=== PATIENT | female | born 1970 | race Caucasian/White ===

== ENCOUNTER 2020-10-08 17:07 | Day surgery (SDCO) | payer OTHER ==
[2020-10-08 17:32] LABS: BASOPHIL 0.5 % (0-2); EOSINOPHIL 2.7 % (0-5); HCT 42.9 % (37.0-47.0); HGB 14.3 g/dl (12.5-16.0); LYMPHOCYTE 10.5 % (15-48); MCH 31.7 pg (25.0-31.0); MCHC 33.3 g/dL (32.0-36.0); MCV 95.1 fL (78.0-100.0); MPV 10.6 fL (6.0-9.5); NEUTROPHIL 80.2 % (41-80); NRBC 0; PLT 316 K/uL (150-400); RBC 4.51 M/uL (4.20-5.40); RDW 12.2 % (11.5-14.0); WBC 15.1 K/uL (4.0-10.5)
[2020-10-08 17:37] LABS: INR 0.96 (0.9-1.2); PROTHROMBIN TIME 12.1 SECONDS (11.4-13.6); PTT 25.3 SECONDS (22.2-34.7)
[2020-10-08 17:39] LABS: D-DIMER 0.52 ug/mLFEU (0.00-0.41)
[2020-10-08 17:45] LABS: ALBUMIN 3.7 g/dL (3.4-5.0); BILIRUBIN - TOTAL 0.5 mg/dL (0.2-1.0); BUN/CREAT RATIO (CALC) 22.4 RATIO; CREATININE 0.76 mg/dL (0.51-0.95); GLOBULIN (CALCULATION) 4.2 g/dL; MAGNESIUM 1.9 mg/dL (1.8-2.4); POTASSIUM 3.8 mmol/L (3.5-5.1); TOTAL PROTEIN 7.9 g/dL (6.4-8.2)
[2020-10-08 17:51] LABS: PRO-BNP 42 pg/mL (<125)
[2020-10-08] MEDS ORDERED: REMERON15 MG PO (23:17)
[2020-10-08] MEDS ORDERED: HYDROCODON-ACE1 EAC6 PO (23:18)
[2020-10-08] MEDS ORDERED: ATARAX25 MG PO (23:19)
[2020-10-09 00:43] LABS: BILIRUBIN NEGATIVE (NEGATIVE); BLOOD 2+ Ery/uL (NEGATIVE); CLARITY CLEAR (CLEAR); COLOR YELLOW (YELLOW); GLUCOSE (U) NORMAL (NORMAL); LEUKOCYTES NEGATIVE Leu/uL (NEGATIVE); NITRITE NEGATIVE (NEGATIVE); PROTEIN NEGATIVE (NEGATIVE); SPECIFIC GRAVITY 1.015 (1.001-1.030); UROBILINOGEN 0.2 mg/dL (0.2-1.0); pH 6.5 (5.0-9.0)
[2020-10-09 00:44] LABS: HCG (URINE) SCREEN NEGATIVE (NEGATIVE)
[2020-10-09 00:46] LABS: BACTERIA TRACE; SQUAMOUS EPITHELIAL CELLS RARE
[2020-10-09 06:26] LABS: BASOPHIL 0.4 % (0-2); EOSINOPHIL 0.8 % (0-5); HCT 42.9 % (37.0-47.0); HGB 14.3 g/dl (12.5-16.0); LYMPHOCYTE 10.5 % (15-48); MCH 31.8 pg (25.0-31.0); MCHC 33.3 g/dL (32.0-36.0); MCV 95.5 fL (78.0-100.0); MONOCYTE 5.3 % (0-12); NRBC 0; PLT 372 K/uL (150-400); RBC 4.49 M/uL (4.20-5.40); RDW 12.1 % (11.5-14.0); WBC 14.4 K/uL (4.0-10.5)
[2020-10-09 07:02] LABS: ALBUMIN 3.3 g/dL (3.4-5.0); BILIRUBIN - TOTAL 0.7 mg/dL (0.2-1.0); BUN/CREAT RATIO (CALC) 16.9 RATIO; CREATININE 0.71 mg/dL (0.51-0.95); POTASSIUM 4.1 mmol/L (3.5-5.1); TOTAL PROTEIN 7.3 g/dL (6.4-8.2)
--- NOTE | 2020-10-09 08:36 | NUR ---
STUDENT NURSE CAME TO NURSE STATING PATIENT WANTED HER BED TO BE IN A HIGH POSTION FROM THE GROUND. PATIENT WAS EDUCATED BY NURSE THAT THE BED BEING IN A LOWER POSITION WAS FOR SAFETY REASONS. PATIENT STATED EVEN IF I RAISE IT AFTER YOU LEAVE THE ROOM. AGAIN THE NURSE STRESS IMPORTANCE OF BED BEING IN LOWER POSITION.
--- NOTE | 2020-10-09 09:24 | NUR ---
PT REPORTS SHE LIVES WITH HER BOYFRIEND; PLEASE ADVIE OF ANY DISCHARGE NEEDS
[2020-10-10 06:58] LABS: BASOPHIL 0.3 % (0-2); HCT 33.9 % (37.0-47.0); HGB 11.3 g/dl (12.5-16.0); LYMPHOCYTE 17.3 % (15-48); MCH 32.1 pg (25.0-31.0); MCHC 33.3 g/dL (32.0-36.0); MCV 96.3 fL (78.0-100.0); MONOCYTE 7.1 % (0-12); MPV 10.7 fL (6.0-9.5); NEUTROPHIL 73.8 % (41-80); NRBC 0; PLT 185 K/uL (150-400); RBC 3.52 M/uL (4.20-5.40); RDW 12.2 % (11.5-14.0); WBC 10.8 K/uL (4.0-10.5)
[2020-10-10 07:11] LABS: ALBUMIN 2.6 g/dL (3.4-5.0); BILIRUBIN - TOTAL 0.8 mg/dL (0.2-1.0); BUN/CREAT RATIO (CALC) 18.8 RATIO; CREATININE 0.64 mg/dL (0.51-0.95); GLOBULIN (CALCULATION) 3.3 g/dL; POTASSIUM 3.5 mmol/L (3.5-5.1); TOTAL PROTEIN 5.9 g/dL (6.4-8.2)
--- NOTE | 2020-10-11 01:13 | NUR ---
RN ASKED DR. ABREU IF IT WAS OKAY TO D/C THE IV FLUIDS. DOCTOR SAID YES BUT DID NOT PUT IN AN ORDER TO D/C
[2020-10-11 05:51] LABS: BASOPHIL 0.4 % (0-2); EOSINOPHIL 4.8 % (0-5); HCT 33.4 % (37.0-47.0); HGB 11.2 g/dl (12.5-16.0); LYMPHOCYTE 26.8 % (15-48); MCH 32.3 pg (25.0-31.0); MCHC 33.5 g/dL (32.0-36.0); MCV 96.3 fL (78.0-100.0); MONOCYTE 7.8 % (0-12); MPV 10.8 fL (6.0-9.5); NEUTROPHIL 59.7 % (41-80); NRBC 0; PLT 107 K/uL (150-400); RBC 3.47 M/uL (4.20-5.40); RDW 12.1 % (11.5-14.0); WBC 7.3 K/uL (4.0-10.5)
[2020-10-11 06:10] LABS: BUN/CREAT RATIO (CALC) 13.4 RATIO; CREATININE 0.67 mg/dL (0.51-0.95); POTASSIUM 3.4 mmol/L (3.5-5.1)
[2020-10-11] MEDS ORDERED: OXYCODONE-ACET1 EACH PO ×2 (10:55→11:06)
[2020-10-11] MEDS ORDERED: AUGMENTIN 875-1 EACH PO (10:55)
[2020-10-11] MEDS ORDERED: ATIVAN1 MG PO (11:00)
== END 2020-10-11 11:24 | disposition home or self-care (01) ==
LOC: FER 17:07 → FMS 21:24
PROVIDERS: Emergency Medicine; Nurse Practitioner; ADMIT Internal Medicine
DX: K80.13 Calculus of gallbladder with acute and chronic cholecystitis with obstruction (principal); J30.2 Other seasonal allergic rhinitis; G89.29 Other chronic pain; M54.9 Dorsalgia, unspecified; E66.3 Overweight; Z68.33 Body mass index [BMI] 33.0-33.9, adult; Z79.899 Other long term (current) drug therapy; Z20.822 Contact with and (suspected) exposure to COVID-19
CPT/HCPCS: 36415; 71275; 76705; 80048; 80053; 81001; 83690; 83735; 83874; 83880; 84484; 84703; 85025; 85379; 85610; 85730; 93005; G0378; J1100; J1170; J1200; J1885; J2060; J2250; J2270; J2405; J2543; J2704; J2710; J3010; J7030; J7120; Q9967; U0002